=== PATIENT | male | born 1980 | race Two or more races ===

== ENCOUNTER 2020-03-23 12:03 | Emergency (ER) | payer OTHER ==
--- NOTE | 2020-03-23 14:02 | EDM.PDOCBH ---
ED HPI GENERAL MEDICAL PROBLEM - General Chief Complaint: Behavioral/Psych Stated Complaint: MULTIPLE ISSUES Time Seen by Provider: 03/23/20 12:17 Source of Information: Reports: Patient History Limitations: Reports: No Limitations - History of Present Illness INITIAL COMMENTS - FREE TEXT/NARRATIVE: The patient presents for anxiety, chest pain and shortness of breath. He was on his way to [place] when he developed these symptoms. He did work out today and had a pre workout that has caffeine. He did not eat after. He had a good work out. He then had the symptoms when he was driving. This has happened before. It seems like it happens when he is on his days off. He does drink more then normal when he is on his days off. He denies fever, chills, cough, congestion, runny nose, abdominal pain, nausea or vomiting. He feels good now. Onset: Gradual Duration: Hour(s): Location: Reports: Chest Quality: Reports: Ache Severity: Mild Improves with: Reports: None Worsens with: Reports: None Associated Symptoms: Reports: Chest Pain, Shortness of Breath. Denies: Cough, Fever/Chills, Headaches, Nausea/Vomiting - Related Data Allergies Allergy/AdvReac Type Severity Reaction Status Date / Time No Known Allergies Allergy Verified 03/23/20 12:23 Home Meds: Home Meds LORazepam [Ativan] 1 mg PO TID PRN #10 tablet 03/23/20 [Rx] Past Medical History - Past Health History Medical/Surgical History: Denies Medical/Surgical History - Past Surgical History Musculoskeletal Surgical History: Reports: Other (See Below) Other Musculoskeletal Surgeries/Procedures:: left shoulder surgery Social & Family History - Tobacco Use Smoking Status *Q: Never Smoker - Caffeine Use Caffeine Use: Reports: Coffee Other Caffeine Use: stopped energy drinks about 2 weeks ago - Recreational Drug Use Recreational Drug Use: No ED ROS GENERAL - Review of Systems Review Of Systems: See Below Constitutional: Reports: No Symptoms HEENT: Reports: No Symptoms Respiratory: Reports: Shortness of Breath Cardiovascular: Reports: Chest Pain Endocrine: Reports: No Symptoms GI/Abdominal: Reports: No Symptoms : Reports: No Symptoms Musculoskeletal: Reports: No Symptoms Skin: Reports: No Symptoms ED EXAM, BEHAVIORAL HEALTH - Physical Exam Exam: See Below Exam Limited By: No Limitations General Appearance: Alert, No Apparent Distress Ears: Normal External Exam Nose: Normal Inspection Head: Atraumatic, Normocephalic Neck: Normal Inspection Respiratory/Chest: No Respiratory Distress, Lungs Clear, Normal Breath Sounds Cardiovascular: Regular Rate, Rhythm, No Edema, No Murmur GI/Abdominal: Soft, Non-Tender, No Organomegaly, No Mass Back Exam: Normal Inspection Extremities: Normal Inspection EKG INTERPRETATION EKG Date: 03/23/20 Time: 13:16 Rhythm: NSR Rate (Beats/Min): 69 [place]: Normal P-Wave: Present QRS: Normal ST-T: Normal QT: Normal COURSE, BEHAVIORAL HEALTH COMP - Course Vital Signs: Last Vital Signs Temp 97.7 F 03/23/20 12:26 Pulse 72 03/23/20 12:26 Resp 20 03/23/20 12:26 BP 127/75 03/23/20 12:26 Pulse Ox 94 L 03/23/20 12:26 Orders, Labs, Meds: Active Orders 24 hr Category Date Time Status Cardiac Monitoring [RC] . DIRECTED Care 03/23/20 13:01 Active EKG Documentation Completion [RC] STAT Care 03/23/20 13:01 Active Chest 1V Frontal [CR] Stat Exams 03/23/20 13:02 Taken COMPREHENSIVE METABOLIC PN,CMP [CHEM] Stat Lab 03/23/20 13:13 Results MAGNESIUM [CHEM] Stat Lab 03/23/20 13:13 Results TROPONIN I [CHEM] Stat Lab 03/23/20 13:13 Results LORazepam [Ativan] Med 03/23/20 14:12 Once 1 mg PO ONETIME ONE Laboratory Tests 03/23/20 03/23/20 Range/Units 13:13 13:13 WBC 5.37 (4.23-9.07) K/mm3 RBC 4.99 (4.63-6.08) M/mm3 Hgb 15.1 (13.7-17.5) gm/dl Hct 44.1 (40.1-51.0) % MCV 88.4 D (79.0-92.2) fl MCH 30.3 (25.7-32.2) pg MCHC 34.2 (32.2-35.5) g/dl RDW Std Deviation 44.6 H (35.1-43.9) fL Plt Count 261 (163-337) K/mm3 MPV 9.3 L (9.4-12.3) fl Neut % (Auto) 76.1 H (34.0-67.9) % Lymph % (Auto) 14.2 L (21.8-53.1) % [place] % (Auto) 7.1 (5.3-12.2) % Eos % (Auto) 2.2 (0.8-7.0) Baso % (Auto) 0.2 (0.1-1.2) % Neut # (Auto) 4.09 (1.78-5.38) K/mm3 Lymph # (Auto) 0.76 L (1.32-3.57) K/mm3 [place] # (Auto) 0.38 (0.30-0.82) K/mm3 Eos # (Auto) 0.12 (0.04-0.54) K/mm3 Baso # (Auto) 0.01 (0.01-0.08) K/mm3 Sodium 135 L (136-145) mEq/L Potassium 4.0 (3.5-5.1) mEq/L Chloride 102 (98-107) mEq/L Carbon Dioxide 26 (21-32) mEq/L Anion Gap 11.0 (5-15) BUN 12 (7-18) mg/dL Creatinine 1.0 (0.7-1.3) mg/dL Est Cr Clr Drug Dosing 101.39 mL/min Estimated GFR (MDRD) > 60 (>60) mL/min BUN/Creatinine Ratio 12.0 L (14-18) Glucose 105 (74-106) mg/dL Magnesium 2.1 (1.8-2.4) mg/dl Total Bilirubin 0.4 (0.2-1.0) mg/dL AST 27 (15-37) U/L ALT 54 (16-63) U/L Alkaline Phosphatase 68 (46-116) U/L Troponin I < 0.017 (0.00-0.056) ng/mL Total Protein 7.2 (6.4-8.2) g/dl Albumin 3.9 (3.4-5.0) g/dl Globulin 3.3 gm/dL Albumin/Globulin Ratio 1.2 (1-2) Re-Assessment/Re-Exam: I ordered an EKG, CXR and labs. His EKG shows a NSR with no acute changes. His CXR looks good. His CBC and CMP look good. His troponin is negative. He feels a little anxious. I gave him some ativan and a prescription for more. Departure - Departure Time of Disposition: 14:15 Disposition: Home, Self-Care 01 Condition: Good Clinical Impression: Anxiety, Atypical chest pain - Discharge Information *PRESCRIPTION DRUG MONITORING PROGRAM REVIEWED*: Not Applicable *COPY OF PRESCRIPTION DRUG MONITORING REPORT IN PATIENT [place]: Not Applicable Prescriptions: LORazepam [Ativan] 1 mg PO TID PRN #10 tablet PRN Reason: Anxiety Referrals: Constantine Sharma Jr, MD [Primary Care Provider] - 1 Week Forms: ED Department Discharge Additional Instructions: Try to reduce your alcohol consumption or stop. Try the ativan as needed for any anxiety symptoms. Please return if you are worse. Sepsis Event Note (ED) - Evaluation Sepsis Screening Result: No Definite Risk - Focused Exam Vital Signs: Vital Signs Temp Pulse Resp BP Pulse Ox 03/23/20 12:26 97.7 F 72 20 127/75 94 L - My Orders Last 24 Hours: My Active Orders 03/23/20 13:01 Cardiac Monitoring [RC] . DIRECTED EKG Documentation Completion [RC] STAT 03/23/20 13:02 Chest 1V Frontal [CR] Stat 03/23/20 13:13 COMPREHENSIVE METABOLIC PN,CMP [CHEM] Stat MAGNESIUM [CHEM] Stat TROPONIN I [CHEM] Stat 03/23/20 14:12 LORazepam [Ativan] 1 mg PO ONETIME ONE - Assessment/Plan Last 24 Hours: My Active Orders 03/23/20 13:01 Cardiac Monitoring [RC] . DIRECTED EKG Documentation Completion [RC] STAT 03/23/20 13:02 Chest 1V Frontal [CR] Stat 03/23/20 13:13 COMPREHENSIVE METABOLIC PN,CMP [CHEM] Stat MAGNESIUM [CHEM] Stat TROPONIN I [CHEM] Stat 03/23/20 14:12 LORazepam [Ativan] 1 mg PO ONETIME ONE
[2020-03-23] MEDS ORDERED: LORazepam 1 MG Tab PO ONE (14:12)
--- NOTE | 2020-03-23 15:04 | CR ---
Chest: Portable view of the chest was obtained. Comparison: No prior chest imaging is available. Heart size and mediastinum are within normal limits for portable technique. Density is noted within the upper right chest most likely due to costochondral calcification. Lungs otherwise are clear. Bony structures are grossly intact. Impression: 1. Nothing acute is appreciated on portable chest x-ray. Diagnostic code #1 This report was dictated in MDT
== END 2020-03-23 14:25 | disposition home or self-care (01) ==
LOC: JD.ED 12:03
DX: F41.9 Anxiety disorder, unspecified (principal); R07.89 Other chest pain
CPT/HCPCS: 36415; 71045; 80053; 83735; 84484; 85025; 93005; 99285; A9270; 93010; 99283